=== PATIENT | male | born 1990 | race Caucasian/White ===

== ENCOUNTER 2020-02-12 22:22 | Emergency (ER) | payer OTHER ==
[~2020-02-12] VITALS: Ht 182.9 cm; Wt 102.1 kg
--- NOTE | ~2020-02-12 | EKG ---
[place] [address] ELECTROCARDIOGRAM REPORT Name: ANTONIO ROSAS Room: [facility]#: [id number] Admission: 02/12/20 Attend Phys: Discharge: 02/13/20 Date of : 86 Date of Service: 02/12/202230 Report #: [id number] THIS REPORT FOR: //name// [facility] ED Test Date: 2020-02-12 Test Time: 22:31:43 Pat Name: ANTONIO ROSAS Department: Room: Gender: Vamp Presser: LAMAR : 1990 Requested By: Concepcion Chadwick Order Number: [id number] Reading MD: Measurements Intervals [place] Rate: 92 P: 80 DE: 161 QRS: 88 QRSD: 103 T: 53 QT: 344 QTc: 426 Interpretive Statements Sinus rhythm No previous ECG available for comparison [email or web address] By: 30 30 Epiphany Epiphany, /EPI
--- NOTE | ~2020-02-12 | EKG ---
[place] [address] ELECTROCARDIOGRAM REPORT Name: ANTONIO ROSAS Room: [facility]#: [id number] Admission: 02/12/20 Attend Phys: Discharge: 02/13/20 Date of : [birth year] Date of Service: 02/12/202230 Report #: [id number] THIS REPORT FOR: //name// [facility] ED Test Date: 2020-02-12 Test Time: 22:31:43 Pat Name: ANTONIO ROSAS Department: Room: Gender: Software Engineering Specialist: LAMAR : 1990 Requested By: Concepcion Chadwick Order Number: [id number] Reading MD: Measurements Intervals [place] Rate: 92 P: 80 TN: 161 QRS: 88 QRSD: 103 T: 53 QT: 344 QTc: 426 Interpretive Statements Sinus rhythm No previous ECG available for comparison [email or web address] By: 30 30 Epiphany Epiphany, /EPI
[2020-02-13] MEDS ORDERED: PROAIR HFA8.5 GM INH (00:46)
[2020-02-13] MEDS ORDERED: PREDNISONE50 MG PO (00:46)
[2020-02-13 01:00] VITALS: BP 155/90
--- NOTE | 2020-02-13 13:35 | EKG ---
[place] [address] ELECTROCARDIOGRAM REPORT Name: NIKOLAIFLACAANTONIO W Room: [facility]#: [id number] Admission: 02/12/20 Attend Phys: Discharge: 02/13/20 Date of : [birth year] Date of Service: 02/12/202230 Report #: [id number] THIS REPORT FOR: //name// [facility] ED Test Date: 2020-02-12 Test Time: 22:31:43 Pat Name: ANTONIO ROSAS Department: Room: Gender: Insurance Claims Specialist: LAMAR : 1990 Requested By: Concepcion Chadwick Order Number: [id number] Candy MD: Martin Paris Measurements Intervals [place] Rate: 92 P: 80 [place]: 161 QRS: 88 QRSD: 103 T: 53 QT: 344 QTc: 426 Interpretive Statements Sinus rhythm artifact noted No previous ECG available for comparison Electronically Signed On 02-13-2020 13:35:06 CDT by Martin Paris [email or web address] <ELECTRONICALLY SIGNED> By: Martin Paris MD, [facility] 02/13/20 1335 30 30 Martin Paris MD, FACC /EPI
== END 2020-02-13 01:00 | disposition home or self-care (01) ==
LOC: M.ERS 22:22
DX: J40 Bronchitis, not specified as acute or chronic (principal); Z20.828 Contact with and (suspected) exposure to other viral communicable diseases; F17.200 Nicotine dependence, unspecified, uncomplicated

== ENCOUNTER 2020-11-06 00:47 | Emergency (ER) | payer OTHER ==
[~2020-11-06] VITALS: Ht 182.9 cm; Wt 106.6 kg
[~2020-11-06 00:47] MED LIST: PREDNISONE50 MG PO; PROAIR HFA8.5 GM INH
[2020-11-06] MEDS ORDERED: PROAIR HFA8.5 GM INH (02:21)
[2020-11-06] MEDS ORDERED: PREDNISONE50 MG PO (02:21)
[2020-11-06] MEDS ORDERED: ALBUTEROL2.5 MG/31 INH (02:21)
[2020-11-06 02:53] VITALS: BP 135/74
== END 2020-11-06 02:53 | disposition home or self-care (01) ==
LOC: M.ERS 00:47
DX: J45.901 Unspecified asthma with (acute) exacerbation (principal); Z79.899 Other long term (current) drug therapy

== ENCOUNTER 2020-12-04 01:02 | Emergency (ER) | payer OTHER ==
[~2020-12-04] VITALS: Ht 182.9 cm; Wt 104.3 kg
[~2020-12-04 01:02] MED LIST changes: +ALBUTEROL2.5 MG/31 INH
[2020-12-04 02:48] LABS: INFLUENZA A ANTIGEN Negative (Negative); INFLUENZA B ANTIGEN Negative (Negative)
[2020-12-04] MEDS ORDERED: PROAIR HFA8.5 GM INH (03:50)
[2020-12-04] MEDS ORDERED: ALBUTEROL2.5 MG/31 INH (03:50)
[2020-12-04] MEDS ORDERED: PREDNISONE50 MG PO (03:51)
[2020-12-04 04:00] VITALS: BP 129/87
== END 2020-12-04 04:00 | disposition home or self-care (01) ==
LOC: M.ERS 01:02
PROVIDERS: Emergency Medicine
DX: J98.01 Acute bronchospasm (principal); F17.210 Nicotine dependence, cigarettes, uncomplicated; Z20.822 Contact with and (suspected) exposure to COVID-19

== ENCOUNTER 2021-03-30 00:11 | Emergency (ER) | payer OTHER ==
[~2021-03-30] VITALS: Ht 182.9 cm; Wt 104.3 kg
[2021-03-30 01:02] LABS: ABSOLUTE EOSINOPHILS 0.5 thou/uL (0.0-0.7); ABSOLUTE LYMPHOCYTES 2.5 thou/uL (0.8-5.3); ABSOLUTE MONOCYTES 0.5 thou/uL (0.0-1.2); ABSOLUTE NEUTROPHILS 2.1 thou/uL (1.6-8.1); BASOPHILS 0.1 %; HEMATOCRIT 44.7 % (42.0-52.0); HEMOGLOBIN 15.2 gm/dL (14.0-18.0); MCH 31.1 pg (26.0-34.0); MCV 91.6 fL (80.0-100.0); MONOCYTES 9.5 %; NUCLEATED RBCS 0 /100WBC; PLATELET COUNT* 294 thou/uL (150-400); POLYS 37.4 %; RBC 4.88 mil/uL (4.50-6.00); RDW-CV 12.5 % (10.5-14.5); WBC 5.6 thou/uL (4.0-11.0)
[2021-03-30 01:05] LABS: CALCIUM 9.1 mg/dL (8.5-10.1); CREATININE 0.9 mg/dL (0.6-1.3); POTASSIUM 3.6 mmol/L (3.5-5.1)
[2021-03-30 01:09] LABS: TOTAL BILIRUBIN 0.3 mg/dL (<0.1-1.0); TOTAL PROTEIN 7.3 g/dL (6.4-8.2)
[2021-03-30] MEDS ORDERED: IPRAT-ALBUT 0.5-3 ML INH (01:52)
[2021-03-30] MEDS ORDERED: MEDROLDOSEPACK PO (01:52)
[2021-03-30 02:18] VITALS: BP 123/80
--- NOTE | 2021-03-30 08:40 | EKG ---
[place] [address] ELECTROCARDIOGRAM REPORT Name: RALPHANTONIO Lama Room: [facility]#: [id number] Admission: 03/30/21 Attend Phys: Discharge: 03/30/21 Date of : [birth year] Date of Service: 03/30/21 0044 Report #: [id number] THIS REPORT FOR: //name// [facility] ED Test Date: 2021-03-30 Test Time: 00:44:03 Pat Name: ANTONIO ROSAS Department: Room: Gender: Roll Out Manager: : 1990 Requested By: Emeli Otero Order Number: [id number] MD: Martin Paris Measurements Intervals [place] Rate: 109 P: 53 NM: 159 QRS: 95 QRSD: 101 T: 54 QT: 334 QTc: 450 Interpretive Statements Sinus tachycardia Borderline right axis deviation Compared to ECG 02/12/2020 22:31:43 Sinus rhythm no longer present Electronically Signed On 03-30-2021 8:39:53 CDT by Martin Paris [email or web address] <ELECTRONICALLY SIGNED> By: Martin Paris MD, [facility] 03/30/21 0839 0044 0044 Martin Paris MD, [facility] /EPI
== END 2021-03-30 02:18 | disposition home or self-care (01) ==
LOC: M.ERS 00:11
PROVIDERS: Personal Emergency Response Attendant
DX: J44.1 Chronic obstructive pulmonary disease with (acute) exacerbation (principal); F17.210 Nicotine dependence, cigarettes, uncomplicated; Z98.890 Other specified postprocedural states